=== PATIENT | female | born 1995 | race Caucasian/White ===

== ENCOUNTER 2017-01-12 11:39 | Emergency (ER) | payer BC, MEDICAID ==
[2017-01-12 11:49] VITALS: BP 103/78
--- NOTE | 2017-01-12 12:02 | UC ---
[facility] Dental HPI - HPI Summary HPI Summary: LEFT LOWER JAW DENTAL PAIN SINCE YESTERDAY, AT #20, 21, NO FEVER. FACIAL SWELLING AND PAIN TO CHEEK AND JAW SURROUNDING TOOTH. PREVIOUS FRACTURE OF TOOTH. NO DENTIST CURRENTLY. - History of Current Complaint Chief Complaint: UCDentalProblem Stated Complaint: dental abcess Time Seen by Provider: 01/12/17 11:40 Hx Obtained From: Patient, Family/Cow Puncher Hx Last Menstrual Period: 12/19/16 Onset/Duration: Sudden Onset, Lasting Days, Still Present, Worse Since - TODAY Severity: Moderate Aggravating: Chewing Related History: Previous Dental Care on Same Tooth, Swelling - Allergies/Home Medications Allergies/Adverse Reactions: Allergies Allergy/AdvReac Type Severity Reaction Status Date / Time Amoxicillin Allergy Severe Rash Verified 01/12/17 11:49 Home Medications: Home Medications Ibuprofen TAB* [Motrin TAB* 800 MG] 1,000 mg PO Q6H 01/12/17 [History Confirmed 01/12/17] PMH/Surg Hx/FS Hx/Imm Hx Previously Healthy: Yes Neurological History Of: Reports: Migraine - NOT RECENTLY Psychological History Of: Reports: Anxiety - OK W/O MEDS SOMTIMES LOOSES CONTROL , Depression - Surgical History Surgical History: None Surgery Procedure, Year, and Place: gallbladder removed 10/03, 10/27/15 - Family History Known Family History: Positive: None Negative: Blood Disorder - Social History Occupation: Employed Full-time Lives: With Family Alcohol Use: Occasionally Substance Use Type: None Smoking Status (MU): Heavy Every Day Tobacco Smoker Amount Used/How Often: 1 ppd Cessation Counseling: Counseled 3+Min - 10 Min Review of Systems Constitutional: Negative Skin: Other - LEFT CHEEK SWELLING Eyes: Negative ENT: Dental Pain Respiratory: Negative Cardiovascular: Negative Gastrointestinal: Negative Genitourinary: Negative Motor: Negative Neurovascular: Negative Musculoskeletal: Negative Neurological: Negative Psychological: Negative All Other Systems Reviewed And Are Negative: Yes Physical Exam Triage Information Reviewed: Yes Appearance: Well-Appearing, Well-Nourished, Pain Distress - MILD, Obese Vital Signs: Initial Vital Signs Temp 97.7 F 01/12/17 11:41 Pulse 118 01/12/17 11:41 Resp 18 01/12/17 11:41 BP 103/78 01/12/17 11:41 Pulse Ox 99 05/25/17 11:41 Vital Signs Reviewed: Yes Eye Exam: Normal Eyes: Positive: Conjunctiva Clear ENT Exam: Normal ENT: Positive: Normal ENT inspection, Hearing grossly normal, Pharynx normal, TMs normal Dental: Positive: Percussion Tenderness @ - 20, 21, Dental Fracture @ - 20, 21, Abscess @ - 20, 21 Neck exam: Normal Neck: Positive: Supple, Nontender, No Lymphadenopathy Respiratory Exam: Normal Respiratory: Positive: Chest non-tender, Lungs clear, Normal breath sounds, No respiratory distress, No accessory muscle use Cardiovascular Exam: Normal Cardiovascular: Positive: RRR, No Murmur, Pulses Normal Abdominal Exam: Normal Musculoskeletal Exam: Normal Neurological Exam: Normal Psychological Exam: Normal Skin Exam: Normal Dental Complaint Course/Dx - Differential Dx/Diagnosis Differential Diagnosis/Dx: Dental Abscess, Dental Caries, Fractured Tooth Provider Diagnoses: DENTLA ABSCESS #20, 21 Discharge - Discharge Plan Condition: Stable Disposition: HOME Prescriptions: Clindamycin Cap(NF) [Cleocin 300 mg Cap(NF)] 300 mg PO TID #30 cap Patient Education Materials: Dental Abscess (ED) Referrals: Trish Steen MD [Primary Care Provider] - Additional Instructions: dental referral sheet given Images Dental: 1 - ABSCESS/PAIN HERE
== END 2017-01-12 12:09 | disposition home or self-care (01) ==
LOC: UCCORT 11:39
DX: K04.7 Periapical abscess without sinus (principal); G43.909 Migraine, unspecified, not intractable, without status migrainosus; F41.9 Anxiety disorder, unspecified; F17.210 Nicotine dependence, cigarettes, uncomplicated; Z88.1 Allergy status to other antibiotic agents; Z90.49 Acquired absence of other specified parts of digestive tract; Z71.6 Tobacco abuse counseling
CPT/HCPCS: 99212; G0463

== ENCOUNTER 2017-07-29 19:03 | Emergency (ER) | payer OTHER ==
[2017-07-29 20:00] VITALS: BP 123/79
--- NOTE | 2017-07-29 21:15 | RAD ---
Indication: Pain and edema following injury. [place] and heard a popping sensation in the posterior RIGHT knee. Pain radiates to the posterior lower leg. Comparison: None. Technique: RIGHT knee: AP, tunnel, lateral, sunrise views. REPORT AND IMPRESSION: Normal alignment. Small suprapatellar recess joint effusion. Negative for fracture. Unremarkable soft tissue contours.
--- NOTE | 2017-07-29 21:36 | UC ---
Knee Pain HPI - HPI Summary HPI Summary: LAST NIGHT WAS HAVING ROUGH-HOUSING, BOYFRIEND PULLED RIGHT KNEE AND FELT/HEARD POP. SINCE TIME OF INJURY HAS HAD PAIN SURROUNDING KNEE CAP. MILD PAIN WITH WEIGHT BEARING. - History of Current Complaint Chief Complaint: UCLowerExtremity Stated Complaint: LEFT KNEE PAIN Time Seen by Provider: 07/29/17 20:41 Hx Obtained From: Patient Hx Last Menstrual Period: 12/19/16 Onset/Duration: Sudden Onset, Lasting Hours Severity Initially: Moderate Severity Currently: Moderate Character: Dull, Aching Aggravating Factor(s): Weight Bearing Associated Signs And Symptoms: Positive: Negative Able to Bear Weight: Yes - Risk Factors Septic Arthritis Risk Factor: Negative Gout Risk Factor: Negative - Allergies/Home Medications Allergies/Adverse Reactions: Allergies Allergy/AdvReac Type Severity Reaction Status Date / Time Amoxicillin Allergy Severe Rash Verified 07/29/17 20:00 Home Medications: Home Medications NK [No Home Medications Reported] 07/29/17 [History Confirmed 07/29/17] PMH/Surg Hx/FS Hx/Imm Hx Previously Healthy: Yes - Surgical History Surgical History: Yes Surgery Procedure, Year, and Place: gallbladder removed 10/03, 10/27/15 - Family History Known Family History: Positive: None Negative: Blood Disorder - Social History Lives: With Family Alcohol Use: Occasionally Substance Use Type: None Smoking Status (MU): Heavy Every Day Tobacco Smoker Amount Used/How Often: 1 ppd Cessation Counseling: Patient Advised to Stop Review of Systems Constitutional: Negative Skin: Negative Eyes: Negative ENT: Negative Respiratory: Negative Cardiovascular: Negative Gastrointestinal: Negative Genitourinary: Negative Motor: Negative Neurovascular: Negative Musculoskeletal: Arthralgia, Edema, Myalgia Neurological: Negative Psychological: Negative Is Patient Immunocompromised?: No All Other Systems Reviewed And Are Negative: Yes Physical Exam Triage Information Reviewed: Yes Appearance: Well-Appearing, No Pain Distress, Well-Nourished Vital Signs: Initial Vital Signs Temp 97.7 F 07/29/17 19:57 Pulse 88 07/29/17 19:57 Resp 16 07/29/17 19:57 BP 123/79 07/29/17 19:57 Pulse Ox 98 07/29/17 19:57 Vital Signs Reviewed: Yes Eye Exam: Normal ENT Exam: Normal ENT: Positive: Normal ENT inspection, Hearing grossly normal Dental Exam: Normal Neck exam: Normal Neck: Positive: Supple, Nontender Respiratory Exam: Normal Respiratory: Positive: Chest non-tender, Lungs clear, Normal breath sounds, No respiratory distress, No accessory muscle use Cardiovascular Exam: Normal Cardiovascular: Positive: RRR, No Murmur, Pulses Normal Abdominal Exam: Normal Musculoskeletal: Positive: No Edema, Strength Limited @ - RIGHT KNEE, ROM Limited @ - RIGHT KNEE Neurological Exam: Normal Psychological Exam: Normal Skin Exam: Normal Diagnostics - Radiology No standard instances Xray Interpretation: Positive (See Comments) - Interpreted by radiologist, reviewed by PARegina. Interpretation : NORMAL ALIGNMENT. NO FRACTURE. SMALL SUPRAPATELLAR RECESS JOINT EFFUSION Radiology Interpretation Completed By: ED Physician, Radiologist Knee Pain Course/Dx - Differential Dx/Diagnosis Differential Diagnosis/HQI/PQRI: Internal Derangement Of Knee, Sprain, Strain Provider Diagnoses: RIGHT KNEE SPRAIN; SMALL SUPRAPATELLAR RECESS JOINT EFFUSION Discharge - Discharge Plan Condition: Stable Disposition: HOME Patient Education Materials: Knee Sprain (ED), Swollen Joint (ED) Referrals: Vaughn Willis MD [Medical Doctor] - Non Staff,Doctor [Primary Care Provider] -
== END 2017-07-29 21:55 | disposition home or self-care (01) ==
LOC: UCCORT 19:03
DX: S83.91XA Sprain of unspecified site of right knee, initial encounter (principal); X58.XXXA Exposure to other specified factors, initial encounter; Y93.83 Activity, rough housing and horseplay; Y92.9 Unspecified place or not applicable; Z90.49 Acquired absence of other specified parts of digestive tract; Z88.1 Allergy status to other antibiotic agents; F17.210 Nicotine dependence, cigarettes, uncomplicated
CPT/HCPCS: 99213; G0463

== ENCOUNTER 2018-03-12 17:18 | Emergency (ER) | payer OTHER ==
[2018-03-12 17:39] VITALS: BP 119/67
[2018-03-12] MEDS ORDERED: cefTRIAXone VIAL(*) 1,000 MG VIAL IM ONE (18:02)
[2018-03-12] MEDS ORDERED: Lidocaine 1% MPF* 2 ML VIAL INJ ONE (18:02)
--- NOTE | 2018-03-12 18:26 | ED ---
Skin Complaint - HPI Summary HPI Summary: 23 yo WF p/w right perineal abscess that started 4-5 days ago. She gets abscesses in her axilla but thinks it is from "sharing towels" or from shaving, she tried manually draining it herself but not much drained but hurts to sit in a chair due to pain. Denies f/c - History of Current Complaint Chief Complaint: UCSkin Time Seen by Provider: 03/12/18 17:40 Stated Complaint: BOIL COMPLAINT Hx Obtained From: Patient Hx Last Menstrual Period: 02/18/18 Onset/Duration: Started Days Ago, Still Present Skin Exposure Onset/Duration: Days Ago Timing: Lasting Days Onset Severity: Severe Pain Intensity: 6 - Allergy/Home Medications Allergies/Adverse Reactions: Allergies Allergy/AdvReac Type Severity Reaction Status Date / Time amoxicillin Allergy Rash Verified 03/12/18 17:41 Home Medications: Home Medications medroxyPROGESTERone ACETATE* [DEPO-Provera*] 150 mg IM MONTHLY 03/12/18 [ History Confirmed 03/12/18] PMH/Surg Hx/FS Hx/Imm Hx Previously Healthy: Yes Sensory History: Denies: Hx Contacts or Glasses, Hx Hearing Aid Opthamlomology History: Denies: Hx Contacts or Glasses Neurological History: Reports: Hx Migraine - NOT RECENTLY Psychiatric History: Reports: Hx Anxiety - [place] W/O MEDS SOMTIMES LOOSES CONTROL, Hx Depression - Surgical History Surgery Procedure, Year, and Place: gallbladder removed 10/03, 10/27/15 Hx Anesthesia Reactions: No Infectious Disease History: No Infectious Disease History: Denies: Traveled Outside the [place] in Last 30 Days - Family History Known Family History: Positive: None Negative: Blood Disorder - Social History Alcohol Use: Occasionally Substance Use Type: Reports: None Smoking Status (MU): Heavy Every Day Tobacco Smoker Amount Used/How Often: 1 ppd Review of Systems Constitutional: Negative Eyes: Negative ENT: Negative Cardiovascular: Negative Respiratory: Negative Gastrointestinal: Negative Genitourinary: Negative Musculoskeletal: Negative Skin: Other - see HPI Neurological: Negative Psychological: Normal All Other Systems Reviewed And Are Negative: Yes Physical Exam - Summary Physical Exam Summary: Vital Signs Reviewed: Yes Appearance: Positive: Well-Appearing Skin: Positive: 2x3 area of erythema and fluctuance with TTP in right perineum distal to right labia, no d/c noted Head/Face: Positive: Normal Head/Face Inspection Eyes: Positive: Normal, EOMI, KAYLEIGH ENT: Positive: Normal ENT inspection Neck: Positive: Supple Respiratory/Lung Sounds: Positive: Clear to Auscultation Cardiovascular: Positive: Normal, RRR, S1, S2 Abdomen Description: Positive: Nontender, Soft Musculoskeletal: Positive: Normal Neurological: Positive: CN Intact II-XII Psychiatric: Positive: Normal Vital Signs On Initial Exam: Initial Vitals Temp Pulse Resp BP Pulse Ox 36.9 C 86 16 119/67 100 03/12/18 17:33 03/12/18 17:33 03/12/18 17:33 03/12/18 17:33 03/12/18 17:33 Diagnostics - Vital Signs Vital Signs Temp Pulse Resp BP Pulse Ox 03/12/18 17:33 36.9 C 86 16 119/67 100 - Laboratory Lab Statement: Any lab studies that have been ordered have been reviewed, and results considered in the medical decision making process. Course/Dx - Course Course Of Treatment: Abscess aspirated with 18G needle and 20cc syringe, drained about 4-5cc of purulent fluid, IM rochephin x1 given here and will cover MRSA wiht Bactrim DS as outpt - Differential Diagnoses - Skin Complaint Differential Diagnoses: Abscess - Diagnoses Provider Diagnoses: Perineal abscess Discharge - Sign-Out/Discharge Documenting (check all that apply): Patient Departure - Discharge Plan Condition: Stable Disposition: HOME Prescriptions: Sulfamethox/Trimethoprim DS* [Bactrim DS 800/160 TAB*] 1 tab PO BID 10 Days #20 tab Patient Education Materials: Abscess (ED) Referrals: Lelia Varela MD [Primary Care Provider] - Additional Instructions: Return to urgent care in 2 days for wound check - Billing Disposition and Condition Condition: STABLE Disposition: Home
== END 2018-03-12 18:46 | disposition home or self-care (01) ==
LOC: UCCORT 17:18
DX: L02.215 Cutaneous abscess of perineum (principal); Z88.0 Allergy status to penicillin; F17.210 Nicotine dependence, cigarettes, uncomplicated
CPT/HCPCS: 10160; 96372; 99212; G0463; J0696

== ENCOUNTER 2018-04-16 18:57 | Emergency (ER) | payer OTHER ==
[2018-04-16 19:44] VITALS: BP 118/72
--- NOTE | 2018-04-16 20:54 | UC ---
Throat Pain/Nasal Joses[place] HPI - HPI Summary HPI Summary: 23 year old female presents with 1 day history of productive cough for yellow sputum, nasal congestion, clear nasal drainage, sore throat, and hoarseness. + smoker. - History of Current Complaint Chief Complaint: UCGeneralIllness Stated Complaint: COUGH/CONGESTION Time Seen by Provider: 04/16/18 20:16 Hx Obtained From: Patient Hx Last Menstrual Period: depo ?: No Onset/Duration: Gradual Onset, Lasting Days - 1 Severity: Mild Pain Intensity: 4 Cough: Productive Associated Signs & Symptoms: Positive: Hoarseness, Sinus Discomfort, Nasal Discharge. Negative: Dysphagia, Wheezing, Fever, Vomiting, Rash Related History: Smoking - Allergies/Home Medications Allergies/Adverse Reactions: Allergies Allergy/AdvReac Type Severity Reaction Status Date / Time amoxicillin Allergy Rash Verified 04/16/18 19:34 Home Medications: Home Medications QUEtiapine TAB* [Seroquel 100 MG *] 100 mg PO BEDTIME 04/16/18 [History Confirmed 04/16/18] ValACYclovir (*) [Valtrex 1 GM(*)] 1 gm PO DAILY PRN 04/16/18 [History Confirmed 04/16/18] PMH/Surg Hx/FS Hx/Imm Hx Previously Healthy: Yes Psychological History: Bipolar Disorder - Surgical History Surgical History: Yes Surgery Procedure, Year, and Place: gallbladder removed 10/03, 10/27/15 - Family History Family History: noncontributory - Social History Occupation: Unemployed Lives: With Family Alcohol Use: None Substance Use Type: None 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 Smoking Status (MU): Heavy Every Day Tobacco Smoker Type: Cigarettes Amount Used/How Often: 1 ppd Length of Time of Smoking/Using Tobacco: 8 yrs Have You Smoked in the Last Year: Yes Review of Systems Constitutional: Negative Skin: Negative Eyes: Negative ENT: Sore Throat, Nasal Discharge, Sinus Congestion Respiratory: Cough Cardiovascular: Negative Gastrointestinal: Negative Is Patient Immunocompromised?: No All Other Systems Reviewed And Are Negative: Yes Physical Exam Triage Information Reviewed: Yes Appearance: No Pain Distress, Well-Nourished Vital Signs: Initial Vital Signs Temp 99 F 04/16/18 19:37 Pulse 92 04/16/18 19:37 Resp 20 04/16/18 19:37 BP 118/72 04/16/18 19:37 Pulse Ox 99 04/16/18 19:37 Vital Signs Reviewed: Yes Eyes: Positive: Conjunctiva Clear. Negative: Discharge ENT: Positive: Pharyngeal erythema - Mild with post-nasal drip present, Nasal congestion, Nasal drainage - clear, TMs normal, Hoarse voice, Uvula midline. Negative: Tonsillar swelling, Tonsillar exudate, Trismus, Muffled voice, Sinus tenderness Neck: Positive: Supple, Nontender, No Lymphadenopathy Respiratory: Positive: Lungs clear, Normal breath sounds, No respiratory distress Cardiovascular: Positive: RRR, No Murmur Neurological: Positive: Alert Skin Exam: Normal Throat Pain/Nasal Course/Dx - Course Course Of Treatment: 23 year old female with 1 day of URI symptoms. Afebrile. Likely viral in origin. Recommend symptomatic treatment and watchful waiting. Warning symptoms requiring immediate medical attention discussed with patient. Verbalized understanding and agrees with POC. - Differential Dx/Diagnosis Provider Diagnoses: Viral URI Discharge - Sign-Out/Discharge Documenting (check all that apply): Patient Departure All imaging exams completed and their final reports reviewed: No Studies - Discharge Plan Condition: Stable Disposition: HOME Patient Education Materials: Viral Syndrome (ED) Forms: *Work Release Referrals: Lelia Varela MD [Primary Care Provider] - 7 Days (If no improvement.) Additional Instructions: Your symptoms appear to by from a viral infection. Viral infections do not respond to antibiotics therefore treatment is typically focused on treating symptoms. Viral infections typically last 7-10 days. Drink plenty of fluids. Take over the counter acetaminophen (Tylenol) or ibuprofen (Advil, Motrin) as needed for any pain or fever. Use salt water gargles several times a day for your sore throat. Saline rinses such as the Netti Pot have been shown to be beneficial for managing nasal congestion associated with upper respiratory infections. you may use an over the counter decongestant such as Sudafed for congestion. Follow up with your primary care provider in 7 days if your symptoms persist. Seek immediate medical attention if you have chest pain, shortness of breath, or any worsening of symptoms. - Billing Disposition and Condition Condition: STABLE Disposition: Home
== END 2018-04-16 21:08 | disposition home or self-care (01) ==
LOC: UCCORT 18:57
DX: J06.9 Acute upper respiratory infection, unspecified (principal); F17.210 Nicotine dependence, cigarettes, uncomplicated; Z88.3 Allergy status to other anti-infective agents
CPT/HCPCS: 99211; G0463

== ENCOUNTER 2018-09-18 19:42 | Emergency (ER) | payer OTHER ==
[2018-09-18 19:59] VITALS: BP 128/74
[2018-09-18 20:15] LABS: Influenza A Molecular POSITIVE (Negative)
[2018-09-18] MEDS ORDERED: Ibuprofen TAB* 600 MG PO ONE (20:20)
--- NOTE | 2018-09-18 20:20 | UC ---
FLU HPI - HPI Summary HPI Summary: 23-year-old woman here with a chief complaint of fever chills body aches chest congestion and wheezing. This all started today. Patient is a smoker. She did take a hot steamy bath which did help with the congestion some. Has not taken any [id number] medications to help with the body aches. - History of Current Complaint Chief Complaint: UCGeneralIllness Stated Complaint: COUGH/ACHY/CHEST CONGESTION Time Seen by Provider: 09/18/18 20:12 Hx Last Menstrual Period: on Depo Provera Pain Intensity: 7 - Allergy/Home Medications Allergies/Adverse Reactions: Allergies Allergy/AdvReac Type Severity Reaction Status Date / Time amoxicillin Allergy Rash Verified 09/18/18 19:59 PMH/Surg Hx/FS Hx/Imm Hx Previously Healthy: Yes - Surgical History Surgical History: Yes Surgery Procedure, Year, and Place: gallbladder removed 10/03, 10/27/15 - Family History Known Family History: Positive: None Negative: Blood Disorder Family History: noncontributory - Social History Alcohol Use: Rare Substance Use Type: Marijuana Substance Use Comment - Amount & Last Used: occasional Smoking Status (MU): Heavy Every Day Tobacco Smoker Type: Cigarettes Amount Used/How Often: 1/2 - 1 ppd Length of Time of Smoking/Using Tobacco: 8 yrs Have You Smoked in the Last Year: Yes Review of Systems All Other Systems Reviewed And Are Negative: Yes Constitutional: Positive: Fever, Chills Skin: Positive: Negative Eyes: Positive: Negative ENT: Positive: Sore Throat, Nasal Discharge, Sinus Congestion Respiratory: Positive: Shortness Of Breath, Cough, Other - WHEEZING Cardiovascular: Positive: Negative Gastrointestinal: Positive: Negative Motor: Positive: Negative Neurovascular: Positive: Negative Musculoskeletal: Positive: Myalgia Neurological: Positive: Negative Psychological: Positive: Negative Is Patient Immunocompromised?: No Physical Exam Triage Information Reviewed: Yes Appearance: No Pain Distress, Well-Nourished, Ill-Appearing - MILD Vital Signs: Initial Vital Signs Temp 99.3 F 09/18/18 19:55 Pulse 129 09/18/18 19:55 Resp 18 09/18/18 19:55 BP 128/74 09/18/18 19:55 Pulse Ox 97 09/18/18 19:55 Vital Signs Reviewed: Yes Eye Exam: Normal Eyes: Positive: Conjunctiva Clear ENT: Positive: Pharyngeal erythema, Nasal congestion, Nasal drainage, TMs normal Neck exam: Normal Neck: Positive: Supple, Nontender Respiratory: Positive: No respiratory distress, No accessory muscle use, Wheezing Cardiovascular: Positive: Tachycardia Musculoskeletal Exam: Normal Musculoskeletal: Positive: Strength Intact, ROM Intact Neurological Exam: Normal Neurological: Positive: Alert, Muscle Tone Normal Psychological Exam: Normal Psychological: Positive: Normal Response To Family, Age Appropriate Behavior Skin Exam: Normal Flu Course/Dx - Course Course Of Treatment: DISCUSSED VIRAL VERSES BACTERIAL INFECTION AND THE ROLE OF ANTIBIOTICS. THE PATIENT WISHES TO BE ON ANTIBIOTIC AT THIS TIME. - Differential Dx/Diagnosis Provider Diagnosis: Influenza, Bronchitis with bronchospasm Discharge - Sign-Out/Discharge Documenting (check all that apply): Patient Departure All imaging exams completed and their final reports reviewed: No Studies - Discharge Plan Condition: Stable Disposition: HOME Prescriptions: Albuterol HFA INHALER* [Ventolin HFA Inhaler*] 2 puff INH Q4H PRN #1 mdi PRN Reason: Wheezing Azithromyxin LEDY (NF) [Z-Ledy (Zithromax) 250 mg tabs #6] 2 tab PO .TODAY, THEN 1 DAILY #6 tab Ibuprofen TAB* [Motrin TAB* 600 MG] 600 mg PO Q6H PRN #20 tab PRN Reason: Fever Oseltamivir Phosphate [Tamiflu] 75 mg PO BID #10 capsule Patient Education Materials: Influenza (ED), Acute Bronchitis (ED), Bronchospasm (ED) Referrals: Lelia Varela MD [Primary Care Provider] - Additional Instructions: FOLLOW UP WITH YOUR DOCTOR IF NOT COMPLETELY IMPROVED. GET RECHECKED SOONER WITH ANY WORSENING OF YOUR CONDITION OR QUESTIONS OR CONCERNS. - Billing Disposition and Condition Condition: STABLE Disposition: Home
== END 2018-09-18 20:32 | disposition home or self-care (01) ==
LOC: UCCORT 19:42
DX: J98.01 Acute bronchospasm (principal); J40 Bronchitis, not specified as acute or chronic; J11.1 Influenza due to unidentified influenza virus with other respiratory manifestations; F17.210 Nicotine dependence, cigarettes, uncomplicated; Z88.0 Allergy status to penicillin
CPT/HCPCS: 99212; A9270-GY; G0463

== ENCOUNTER 2018-11-05 17:46 | Emergency (ER) | payer OTHER ==
[2018-11-05 17:58] VITALS: BP 146/86
--- NOTE | 2018-11-05 18:08 | UC ---
Dental HPI - HPI Summary HPI Summary: Patient complains of left lower gum pain. She states she has a history of a small mouth which causes her lower molars to irritate her buccal mucosa. She denies any recent fever. She also has a sore throat over the past couple of days. - History of Current Complaint Chief Complaint: UCGeneralIllness Stated Complaint: ST,DENTAL COMPLAINT Time Seen by Provider: 11/05/18 17:59 Hx Obtained From: Patient Hx Last Menstrual Period: on Depo Provera ?: No Onset/Duration: Gradual Onset Severity: Moderate Pain Intensity: 6 Aggravating Factor(s): Nothing Alleviating Factor(s): Nothing - Allergies/Home Medications Allergies/Adverse Reactions: Allergies Allergy/AdvReac Type Severity Reaction Status Date / Time amoxicillin Allergy Rash Verified 09/18/18 19:59 PMH/Surg Hx/FS Hx/Imm Hx Previously Healthy: Yes - Surgical History Surgical History: Yes Surgery Procedure, Year, and Place: gallbladder removed 10/03, 10/27/15 - Family History Known Family History: Positive: None Negative: Blood Disorder Family History: noncontributory - Social History Alcohol Use: Occasionally Substance Use Type: Marijuana Substance Use Comment - Amount & Last Used: occasional Smoking Status (MU): Heavy Every Day Tobacco Smoker Type: Cigarettes Amount Used/How Often: 1/2 - 1 ppd Length of Time of Smoking/Using Tobacco: 8 yrs Have You Smoked in the Last Year: Yes Review of Systems All Other Systems Reviewed And Are Negative: Yes Constitutional: Positive: Negative Skin: Positive: Negative Eyes: Positive: Negative ENT: Positive: Sore Throat - Patient denies actual dental pain however states that the left lower gumline tends to grow over her molars and this causes her discomfort., Other Respiratory: Positive: Negative Cardiovascular: Positive: Negative Gastrointestinal: Positive: Negative Genitourinary: Positive: Negative Motor: Positive: Negative Neurovascular: Positive: Negative Musculoskeletal: Positive: Negative Neurological: Positive: Negative Psychological: Positive: Negative Is Patient Immunocompromised?: No Physical Exam Triage Information Reviewed: Yes Appearance: Well-Appearing, No Pain Distress, Well-Nourished Vital Signs: Initial Vital Signs Temp 98.8 F 11/05/18 17:55 Pulse 90 11/05/18 17:55 Resp 18 11/05/18 17:55 BP 146/86 11/05/18 17:55 Pulse Ox 100 11/05/18 17:55 Vital Signs Reviewed: Yes Eye Exam: Normal ENT: Positive: Hearing grossly normal, Pharyngeal erythema, TMs normal, Tonsillar swelling, Uvula midline. Negative: Tonsillar exudate, Trismus, Muffled voice Dental Exam: Normal Dental: Positive: Other: - Left lower gumline tends to grow over the distal molars however there is no cellulitis or evidence of abscess formation. Themselves are nontender on firm palpation. Neck: Positive: Supple, Nontender, No Lymphadenopathy Respiratory Exam: Normal Cardiovascular Exam: Normal Musculoskeletal Exam: Normal Neurological Exam: Normal Psychological Exam: Normal Skin Exam: Normal Dental Complaint Course/Dx - Differential Dx/Diagnosis Differential Diagnosis/Dx: Pharyngitis Provider Diagnosis: Pharyngitis Discharge - Sign-Out/Discharge Documenting (check all that apply): Patient Departure All imaging exams completed and their final reports reviewed: No Studies - Discharge Plan Condition: Fair Disposition: HOME Prescriptions: Clindamycin Cap(NF) [Clindamycin Cap 300 mg Cap(NF)] 300 mg PO Q6H 10 Days #40 cap Ibuprofen TAB* [Motrin TAB* 600 MG] 600 mg PO Q8H PRN 8 Days #24 tab PRN Reason: Pain Patient Education Materials: Pharyngitis (ED), Toothache (ED) Referrals: Lelia Varela MD [Primary Care Provider] - Additional Instructions: Call your dentist tomorrow to schedule an appointment for further treatment. Take the clindamycin with food - Billing Disposition and Condition Condition: FAIR Disposition: Home - Attestation Statements Provider Attestation: Per institutional requirements, I have reviewed the chart, however, I was not consulted specifically or made aware of this patient by the midlevel provider. I did not personally evaluate, interact with , or disposition this patient.
== END 2018-11-05 18:24 | disposition home or self-care (01) ==
LOC: UCCORT 17:46
DX: J02.9 Acute pharyngitis, unspecified (principal); K08.89 Other specified disorders of teeth and supporting structures; F17.210 Nicotine dependence, cigarettes, uncomplicated
CPT/HCPCS: 99212; G0463

== ENCOUNTER 2019-03-17 13:47 | Emergency (ER) | payer OTHER ==
[2019-03-17 13:59] VITALS: BP 136/88
[2019-03-17] MEDS ORDERED: Acetaminophen TAB* 325 MG PO ONE (14:11)
--- NOTE | 2019-03-17 14:25 | UC ---
Throat Pain/Nasal Josesito HPI - HPI Summary HPI Summary: Sore throat and fever started this morning. - History of Current Complaint Chief Complaint: UCGeneralIllness Stated Complaint: BACK PAIN/BODY ACHES/ST Time Seen by Provider: 03/17/19 14:05 Hx Obtained From: Patient Hx Last Menstrual Period: depo ?: No Onset/Duration: Gradual Onset Severity: Moderate Pain Intensity: 9 Cough: None Associated Signs & Symptoms: Positive: Fever - Allergies/Home Medications Allergies/Adverse Reactions: Allergies Allergy/AdvReac Type Severity Reaction Status Date / Time amoxicillin Allergy Rash Verified 03/17/19 13:55 PMH/Surg Hx/FS Hx/Imm Hx Previously Healthy: Yes - Surgical History Surgical History: Yes Surgery Procedure, Year, and Place: gallbladder removed 10/03, 10/27/15 - Family History Known Family History: Positive: None Negative: Blood Disorder Family History: noncontributory - Social History Alcohol Use: Occasionally Substance Use Type: None Substance Use Comment - Amount & Last Used: occasional Smoking Status (MU): Heavy Every Day Tobacco Smoker Type: Cigarettes Amount Used/How Often: 1/2 - 1 ppd Length of Time of Smoking/Using Tobacco: 8 yrs Have You Smoked in the Last Year: Yes Review of Systems All Other Systems Reviewed And Are Negative: Yes ENT: Positive: Sore Throat Is Patient Immunocompromised?: No Physical Exam Triage Information Reviewed: Yes Appearance: Well-Appearing, No Pain Distress, Well-Nourished Vital Signs: Initial Vital Signs Temp 100 F 03/17/19 13:55 Pulse 125 03/17/19 13:55 Resp 17 03/17/19 13:55 BP 136/88 03/17/19 13:55 Pulse Ox 100 03/17/19 13:55 Vital Signs Reviewed: Yes Eyes: Positive: Conjunctiva Clear ENT: Positive: Hearing grossly normal, Pharyngeal erythema, TM red - Left TM injected but still with good landmarks and light reflex, Right TM pearly mosquera with good landmarks and ligh reflex., Tonsillar swelling, Uvula midline. Negative: Tonsillar exudate, Trismus, Muffled voice, Hoarse voice Neck: Positive: Supple, Nontender, No Lymphadenopathy Respiratory: Positive: Lungs clear, Normal breath sounds, No respiratory distress, No accessory muscle use Cardiovascular: Positive: No Murmur, Pulses Normal, Brisk Capillary Refill, Tachycardia Musculoskeletal Exam: Normal Neurological Exam: Normal Psychological Exam: Normal Skin Exam: Normal Throat Pain/Nasal Course/Dx - Course Course Of Treatment: Tylenol 650 mg p.o. given here. She was given water to drink and her pulse rate lessened to 113. - Differential Dx/Diagnosis Provider Diagnosis: Strep pharyngitis Discharge - Sign-Out/Discharge Documenting (check all that apply): Patient Departure All imaging exams completed and their final reports reviewed: No Studies - Discharge Plan Condition: Fair Disposition: HOME Prescriptions: Azithromyxin LEDY (NF) [Z-Ledy (Zithromax) 250 mg tabs #6] 2 tab PO .TODAY, THEN 1 DAILY #6 tab Ibuprofen TAB* [Motrin TAB* 600 MG] 600 mg PO Q8H PRN #21 tab PRN Reason: Pain Patient Education Materials: Strep Throat (DC) Referrals: Yael Mackenzie [Primary Care Provider] - Additional Instructions: Increase fluids, rest, change your toothbrush in 24 hours, you are contagious for 24 hours. Follow up with your doctor if no improvement in 3-4 days. - Billing Disposition and Condition Condition: FAIR Disposition: Home
== END 2019-03-17 14:32 | disposition home or self-care (01) ==
LOC: UCCORT 13:47
DX: J02.0 Streptococcal pharyngitis (principal); Z88.0 Allergy status to penicillin; F17.210 Nicotine dependence, cigarettes, uncomplicated
CPT/HCPCS: 87651; 99212; A9270-GY; G0463

== ENCOUNTER 2019-11-14 15:56 | Emergency (ER) | payer OTHER ==
[2019-11-14 16:17] VITALS: BP 130/83
--- NOTE | 2019-11-14 16:37 | UC ---
Skin Complaint HPI - HPI Summary HPI Summary: Patient is a 24yo female presenting with complaint of two abscesses on left side abdomen x2 days. States one abscess is draining. States she has had similar boils in the past. Notes TTP. Denies fever and chills. Denies n/v. Patient admits to being IVDU. Uses meth and anjel. Last use was this morning, meth. States she does not place needles in the abdomen, only in legs and arms. Patient states she "came just to get some antibiotics and go home." - History of Current Complaint Chief Complaint: UCSkin Stated Complaint: BOIL ON STOMACHE Hx Obtained From: Patient Hx Last Menstrual Period: 2 months ago Pain Intensity: 5 Pain Scale Used: 0-10 Numeric - Allergy/Home Medications Allergies/Adverse Reactions: Allergies Allergy/AdvReac Type Severity Reaction Status Date / Time amoxicillin Allergy Rash Verified 11/14/19 16:17 Home Medications: Home Medications Ibuprofen TAB* [Motrin TAB* 600 MG] 600 mg PO Q8H PRN #21 tab 03/17/19 [Rx Confirmed 11/14/19] Ibuprofen TAB* [Motrin TAB* 600 MG] 600 mg PO Q8H PRN #60 tab 11/14/19 [Rx] Sulfamethox/Trimethoprim DS* [Bactrim DS 800/160 TAB*] 1 tab PO BID #20 tab [Rx] PMH/Surg Hx/FS Hx/Imm Hx - Surgical History Surgical History: Yes Surgery Procedure, Year, and Place: gallbladder removed 10/03, 10/27/15 - Family History Known Family History: Positive: None Negative: Blood Disorder Family History: noncontributory - Social History Alcohol Use: None Substance Use Type: None Substance Use Comment - Amount & Last Used: IV drug/ meth Smoking Status (MU): Heavy Every Day Tobacco Smoker Type: Cigarettes Amount Used/How Often: 1/2 - 1 ppd Length of Time of Smoking/Using Tobacco: 8 yrs Have You Smoked in the Last Year: Yes Review of Systems All Other Systems Reviewed And Are Negative: Yes Constitutional: Positive: Negative Skin: Positive: Other - two "boils" left side abdomen Respiratory: Positive: Negative Cardiovascular: Positive: Negative Gastrointestinal: Positive: Negative Musculoskeletal: Positive: Negative Neurological/Mental Status: Positive: Negative Physical Exam - Summary Physical Exam Summary: Vital Signs Reviewed: Yes A+Ox3, no distress, disheveled, obese Eyes: Conjunctiva Clear ENT: Hearing grossly normal Neck: Positive: Supple Respiratory: Positive: No respiratory distress, No accessory muscle use + CTA throughout no w/r Cardiovascular: tachycardia, regular rhythm, nl s1, s2 no m/r Musculoskeletal Exam: GRIFFIN x 4 without difficulty Neurological: Positive: Alert Psychological: Positive: age appropriate behavior Skin: Positive: two abscesses noted on left side abdomen, one abscess draining scant amount of purulent discharge, with central induration. both abscesses with surrounding warmth and erythema, erythema more significant with draining abscess. mild fluctuance and TTP noted of both Vital Signs: Initial Vital Signs Temp 97.9 F 11/14/19 16:11 Pulse 115 11/14/19 16:11 Resp 16 11/14/19 16:11 BP 130/83 11/14/19 16:11 Pulse Ox 99 11/14/19 16:11 Course/Dx - Course Course Of Treatment: Patient with two left sided abdominal abscesses with surrounding cellulitis. Patient was educated on severity of abscesses/cellulitis and how quickly infection can progress. Patient declined I&D several times. Patient also declined IM rocephin here. I treated with bactrim po and instructed to apply warm compresses. I educated on s/s of worsening infection and instructed to go to the ED if not improving by end of day tomorrow or if other red flags occur. Patient voiced understanding and agreed with treatment of bactrim. Also requested prescription for ibuprofen which I provided. - Diagnoses Provider Diagnosis: Cellulitis and abscess of trunk Discharge ED - Sign-Out/Discharge Documenting (check all that apply): Patient Departure All imaging exams completed and their final reports reviewed: No Studies - Discharge Plan Condition: Stable Disposition: HOME Prescriptions: Ibuprofen TAB* [Motrin TAB* 600 MG] 600 mg PO Q8H PRN #60 tab PRN Reason: Pain - Moderate Sulfamethox/Trimethoprim DS* [Bactrim DS 800/160 TAB*] 1 tab PO BID #20 tab Patient Education Materials: Abscess (ED) Referrals: Yael Mackenzie [Primary Care Provider] - Additional Instructions: Take Bactrim as prescribed for abscess. Apply warm compresses to the area 2-3 times daily. Do not pick at or puncture the abscesses with anything. Take ibuprofen as directed for pain. Go to the emergency room if you experience new or worsening symptoms, including fever, chills, nausea, vomiting, or increased redness. - Billing Disposition and Condition Condition: STABLE Disposition: Home
[2019-11-14] MEDS ORDERED: cefTRIAXone VIAL(*) 1,000 MG VIAL IM ONE (16:51)
[2019-11-14] MEDS ORDERED: Lidocaine 1% MPF ** 5 ML VIAL ONE (16:55)
== END 2019-11-14 17:20 | disposition home or self-care (01) ==
LOC: UCCORT 15:56
DX: L03.311 Cellulitis of abdominal wall (principal); L02.211 Cutaneous abscess of abdominal wall; Z88.0 Allergy status to penicillin; F17.210 Nicotine dependence, cigarettes, uncomplicated
CPT/HCPCS: 84702; 87070; 87077; 87186; 87205; 87640; 87641; 99212; G0463; J0696